=== PATIENT | female | born 1975 | race Caucasian/White ===

== ENCOUNTER → 2025-01-15 | Outpatient (CLI) | payer BC, SELFPAY ==
[2025-01-15 12:49] VITALS: BP 130/86; PULSE 66; RESP 16; O2SAT 100; BMI 29.2
--- NOTE | 2025-01-15 13:00 | CT_ITS ---
PROCEDURE: LIMITED CHEST CT CARDIAC ONLY 01/15/2025 REASON FOR EXAM: ATYPICAL CP TECHNIQUE: Procedure Code: [id number] Modality: CT Procedure: LIMITED CHEST CT CARDIAC ONLY One or more dose reduction techniques were used (e.g., Automated exposure control, adjustment of the mA and/or kV according to patient size, use of iterative reconstruction technique). RADIATION DOSE SUMMARY: CTDlvol: 54.18 mGy DLP: 1227.98 mGycm COMPARISON: None. CT/Limited Chest CT Cardiac Only IMPRESSION: Intravenous contrast is seen. Limited imaging of the lungs demonstrates no acute process. No pleural effusion or pneumothorax is seen in visualized areas. No adenopathy is noted. The visualized upper abdomen demonstrates no significant abnormality. Reading Location: [id number]
[2025-01-15 13:09] VITALS: PULSE 63
[2025-01-15] MEDS: Nitroglycerin SL (ED/IMG/CATH) 0.4 MG TABLET SL (13:09)
[2025-01-15 13:16] VITALS: BP 131/85; PULSE 66; RESP 16; O2SAT 99
--- NOTE | 2025-01-16 06:40 | CCTA.WCONT ---
CCTA w/Cont Coronary Arteries Date of Study:: 01/15/25 Atypical CP Coronary Calcium Scoring: High-resolution Computed Tomographic imaging of the chest was performed on [01/15/25 ], with particular attention paid to the coronary arteries. Intravenous contrast agent was administered per protocol and images reconstructed and displayed. LEFT MAIN CORONARY ARTERY: This arises from the left coronary cusp with no significant stenosis noted. It trifurcates into the left anterior descending artery, ramus intermedius, and left circumflex artery. [] LEFT ANTERIOR DESCENDING CORONARY ARTERY: Medium size vessel coursing towards the apex of the ventricle no significant atherosclerotic plaquing is noted [] LEFT CIRCUMFLEX CORONARY ARTERY: Nondominant vessel giving off 2 obtuse marginal branches with no significant atherosclerotic plaquing or calcification no stenosis noted [] RIGHT CORONARY ARTERY: Dominant right coronary artery arising from the right coronary cusp with no significant atherosclerotic plaquing stenosis or calcification present. [] THORACIC AORTA: Normal size [] PULMONARY ARTERY: Normal size [] LEFT ATRIUM/APPENDAGE: [] MITRAL VALVE: [] AORTIC VALVE: [place] [] LEFT VENTRICLE: [] CORONARY CALCIUM SCORE: Not performed [] Calcium Scoring Interpretation: Different methods to categorize the overall amount of coronary plaque. Overall amount CAC SIS Visual of coronary plaque P1 Mild -100 <2 1-2 vessels with mild amount of plaque P2 Moderate 101-300 3-4 1-2 vessels with moderate amount, 3 vessels with mild amount of plaque P3 Severe 301-999 5-7 3 vessels with moderate amount, 1 vessel with severe amount of plaque P4 Extensive >1000 >8 2-3 vessels with severe amount of plaque Conclusion: CT angiogram demonstrating no significant atherosclerotic plaquing or stenosis present.
== END | disposition home or self-care (01) ==
PROVIDERS: PCP Preventive Medicine Public Health & General Preventive Medicine; Referring Provider Nurse Practitioner Family; Visit Provider Nurse Practitioner Family
DX: R07.89 Other chest pain (principal)
CPT/HCPCS: 75574; 76380; Q9967